=== PATIENT | male | born 1980 | race Caucasian/White ===

== ENCOUNTER → 2016-04-05 | Outpatient (CLI) | payer BC, OTHER ==
[~2016-04-05] MED LIST: ACET65TA OR; ASPI81TA63 OR; PERC5TAB8 OR
[2016-04-05 10:35] LABS: MEAN CORPUSCULAR HEMOGLOBIN 30.1 pg (27.0-33.0); MEAN CORPUSCULAR HGB CONC 33.6 g/dl (32.0-36.5); MEAN CORPUSCULAR VOLUME 89.6 fl (80.0-96.0); RED CELL DISTRIBUTION WIDTH 12.2 % (11.5-14.5)
[2016-04-05 11:20] LABS: ALBUMIN 3.8 GM/DL (3.2-5.2); ALBUMIN/GLOBULIN RATIO 0.97 (1.00-1.93); ALKALINE PHOSPHATASE 49 U/L (45-117); ALT/SGPT 49 U/L (12-78); ANION GAP 8 MEQ/L (8-16); AST/SGOT 23 U/L (15-37); BILIRUBIN,TOTAL 0.5 MG/DL (0.2-1.0); BLOOD UREA NITROGEN 15 MG/DL (7-18); CALCIUM LEVEL 9.2 MG/DL (8.5-10.1); CARBON DIOXIDE LEVEL 30 MEQ/L (21-32); CHLORIDE LEVEL 102 MEQ/L (98-107); CHOLESTEROL LEVEL 206 MG/DL (<200); CREATININE FOR GFR 1.08 MG/DL (0.70-1.30); GLOMERULAR FILTRATION RATE > 60.0 (>60); GLUCOSE, FASTING 82 MG/DL (70-105); POTASSIUM SERUM 4.8 MEQ/L (3.5-5.1); SODIUM LEVEL 140 MEQ/L (136-145); TOTAL PROTEIN 7.7 GM/DL (6.4-8.2); TRIGLYCERIDES LEVEL 136 MG/DL (<150)
== END ==
LOC: M LAB 10:11
PROVIDERS: ATTEND Family Medicine
DX: D64.9 Anemia, unspecified (principal); R53.83 Other fatigue

== ENCOUNTER → 2018-06-27 | Outpatient (CLI) | payer BC, OTHER ==
[2018-06-27 11:31] LABS: HEMATOCRIT 49.4 % (42.0-52.0); HEMOGLOBIN 16.1 g/dl (13.5-17.5); MEAN CORPUSCULAR HGB CONC 32.6 g/dl (32.0-36.5); PLATELET COUNT, AUTOMATED 283 10^3/uL (150-450); RED BLOOD COUNT 5.55 10^6/uL (4.30-6.10); WHITE BLOOD COUNT 5.5 10^3/uL (4.0-10.0)
[2018-06-27 12:21] LABS: ALBUMIN 3.9 GM/DL (3.2-5.2); ALT/SGPT 44 U/L (12-78); BILIRUBIN,TOTAL 0.6 MG/DL (0.2-1.0); BLOOD UREA NITROGEN 16 MG/DL (7-18); CARBON DIOXIDE LEVEL 30 MEQ/L (21-32); CHLORIDE LEVEL 104 MEQ/L (98-107); CHOLESTEROL LEVEL 219 MG/DL (<200); CREATININE FOR GFR 1.19 MG/DL (0.70-1.30); GLOMERULAR FILTRATION RATE > 60.0 (>60); GLUCOSE, FASTING 84 MG/DL (70-100); HDL CHOLESTEROL 30 MG/DL (>40); LDL CHOLESTEROL 173 MG/DL (<100); NON-HDL-C 189 MG/DL; POTASSIUM SERUM 5.2 MEQ/L (3.5-5.1); SODIUM LEVEL 139 MEQ/L (136-145); TESTOSTERONE 129 NG/DL (241-827); THYROID STIMULATING HORMONE 0.895 uIU/ML (0.358-3.740); TOTAL 25(OH) VITAMIN D 36.5 NG/ML (30.0-100.0); TOTAL PROTEIN 7.5 GM/DL (6.4-8.2); TRIGLYCERIDES LEVEL 79 MG/DL (<150)
== END ==
LOC: M LAB 10:10
PROVIDERS: ATTEND Family Medicine
DX: R53.83 Other fatigue (principal); E03.9 Hypothyroidism, unspecified

== ENCOUNTER → 2018-10-24 | Outpatient (CLI) | payer BC, OTHER ==
--- NOTE | 2018-10-24 21:03 | REP ---
MRI LEFT HIP: TECHNIQUE: Coronal T1, STIR through the pelvis, T2 fat sat, left hip all three planes, axial oblique proton density fat sat left hip. Visualized osseous structures demonstrate normal bone marrow signal. There is no bone marrow edema or occult fracture. There is no evidence of avascular necrosis. I do not see a discrete labral tear. There is no paralabral cyst. There is a normal amount of joint fluid. There is an area of fluid signal within the proximal rectus femoris muscle with a fluid gap of approximately 4 cm. This indicates rupture of the proximal rectus femoris muscle. AP diameter of the fluid signal is 1.7 cm and transverse 3.7 cm. Other adjacent muscles and tendons demonstrate no abnormal signal. Visualized intrapelvic structures are unremarkable. IMPRESSION: Rupture of proximal rectus femoris muscle with a fluid gap and distraction of the proximal and distal portions of the torn muscle approximately 4 cm. Electronically Signed by Bruce Brewer MD 10/25/2018 02:36 P
== END ==
LOC: M RAD 16:53
PROVIDERS: ATTEND Orthopaedic Surgery Sports Medicine
DX: S76.112A Strain of left quadriceps muscle, fascia and tendon, initial encounter (principal); X58.XXXA Exposure to other specified factors, initial encounter; Y92.89 Other specified places as the place of occurrence of the external cause

== ENCOUNTER → 2020-01-15 | Outpatient (CLI) | payer BC, OTHER ==
[2020-01-15 11:43] LABS: HEMATOCRIT 49.8 % (42.0-52.0); HEMOGLOBIN 16.5 g/dl (13.5-17.5); MEAN CORPUSCULAR HEMOGLOBIN 29.2 pg (27.0-33.0); MEAN CORPUSCULAR HGB CONC 33.1 g/dl (32.0-36.5); PLATELET COUNT, AUTOMATED 234 10^3/uL (150-450); RED BLOOD COUNT 5.66 10^6/uL (4.30-6.10); WHITE BLOOD COUNT 5.2 10^3/uL (4.0-10.0)
--- NOTE | 2020-01-15 11:56 | REP ---
INDICATION: FATIGUE,HYPOTHYROID, LAB 1ST, EKG 2ND, XRAY 3RD. COMPARISON: None. TECHNIQUE: Two views.. FINDINGS: The lungs are well inflated and free of infiltrate. The pleural angles are sharp. The heart size is normal. Pulmonary vasculature is not increased. No significant bony abnormality is seen. There are 2 old healed rib fractures on the left anteriorly. IMPRESSION: Two old healed left-sided rib fractures. Otherwise negative chest x-ray.. <Electronically signed by Fredis Evans > 01/15/20 [id number]
[2020-01-15 12:15] LABS: ALT/SGPT 25 U/L (12-78); BILIRUBIN,TOTAL 0.5 MG/DL (0.2-1.0); BLOOD UREA NITROGEN 18 MG/DL (7-18); CALCIUM LEVEL 9.2 MG/DL (8.5-10.1); CARBON DIOXIDE LEVEL 30 MEQ/L (21-32); CHLORIDE LEVEL 104 MEQ/L (98-107); CHOLESTEROL LEVEL 217 MG/DL (<200); GLOMERULAR FILTRATION RATE > 60.0 (>60); GLUCOSE, FASTING 83 MG/DL (70-100); HDL CHOLESTEROL 55 MG/DL (>40); POTASSIUM SERUM 4.6 MEQ/L (3.5-5.1); SODIUM LEVEL 138 MEQ/L (136-145); TESTOSTERONE 550 NG/DL (241-827); TRIGLYCERIDES LEVEL 86 MG/DL (<150)
[2020-01-15 12:16] LABS: ALBUMIN 4.1 GM/DL (3.2-5.2); CHOLESTEROL RISK RATIO 3.945 (<5); LDL CHOLESTEROL 145 MG/DL (<100); NON-HDL-C 162 MG/DL; PROSTATIC SPECIFIC AG MONITOR 0.61 NG/ML (< 4.00); TOTAL PROTEIN 7.5 GM/DL (6.4-8.2)
--- NOTE | 2020-01-15 18:09 | ECGEPIP ---
[facility] Test Date: 2020-01-15 Pat Name: URIEL SMITH Department: Room: - Gender: Male Clinical Care Leader: LEONOR : 1980 Requested By: Juan Anglin Order Number: [id number] Reading MD: Jack Smith Measurements Intervals [place] Rate: 57 P: 61 RI: 156 QRS: 59 QRSD: 92 T: 51 QT: 385 QTc: 375 Interpretive Statements Sinus bradycardia Early repolarization Athletic heart suggested Comparison tracing not available Electronically Signed on 01-15-2020 18:09:13 EST by Jack Smith
== END ==
LOC: M LAB 10:09
PROVIDERS: ATTEND Family Medicine
DX: R53.83 Other fatigue (principal); E03.9 Hypothyroidism, unspecified

== ENCOUNTER → 2020-10-07 | Outpatient (CLI) | payer BC, OTHER ==
[~2020-10-07] MED LIST changes: +CETI-24 PO; +DOXY100C3 PO; +FISH1000 PO; +SIMV20TA22 PO; +THERTAB52 PO; +ZOLP10TA2 PO
== END ==
LOC: M WUC 09:51
PROVIDERS: ATTEND Physician Assistant
DX: S83.412A Sprain of medial collateral ligament of left knee, initial encounter (principal); X58.XXXA Exposure to other specified factors, initial encounter; Y92.9 Unspecified place or not applicable; Y93.9 Activity, unspecified; Y99.9 Unspecified external cause status

== ENCOUNTER → 2020-10-18 | Outpatient (CLI) | payer BC, OTHER ==
[~2020-10-18] MED LIST changes: -CETI-24 PO; -DOXY100C3 PO; -FISH1000 PO; -SIMV20TA22 PO; -THERTAB52 PO; -ZOLP10TA2 PO
--- NOTE | 2020-10-19 08:49 | REP ---
INDICATION: LT KNEE PAIN. COMPARISON: None. TECHNIQUE: Routine scans without gadolinium enhancement. FINDINGS: There is extensive injury to the medial head of the gastrocnemius with high-signal in the musculotendinous junction and and fluid surrounding the tendon and musculotendinous junction consistent with focal hemorrhage. The tendon is not torn and there is no retraction. The remaining muscles of the knee are intact. There is a joint effusion. There is a radial tear involving the posterior horn of the medial meniscus. Lateral meniscus is intact. The cruciate and collateral ligaments are intact. The patella is well seated in the retinacula are intact. IMPRESSION: Extensive injury in the medial head of the gastrocnemius muscle with surrounding blood. No disruption of the muscle fibers and no retraction. Radial tear posterior horn medial meniscus. <Electronically signed by Shiv Barber > 10/19/20 3584
== END ==
LOC: M RAD 14:59
PROVIDERS: ATTEND Orthopaedic Surgery Sports Medicine
DX: S83.242A Other tear of medial meniscus, current injury, left knee, initial encounter (principal); X58.XXXA Exposure to other specified factors, initial encounter; Y92.89 Other specified places as the place of occurrence of the external cause; Y93.89 Activity, other specified; Y99.8 Other external cause status

== ENCOUNTER → 2020-12-19 | Outpatient (CLI) | payer BC, OTHER ==
[~2020-12-19] MED LIST changes: +CETI-24 PO; +DOXY100C3 PO; +FISH1000 PO; +SIMV20TA22 PO; +THERTAB52 PO; +ZOLP10TA2 PO
== END ==
LOC: M LABSMTC 09:06
PROVIDERS: ATTEND Anesthesiology
DX: Z01.812 Encounter for preprocedural laboratory examination (principal); Z20.822 Contact with and (suspected) exposure to COVID-19

== ENCOUNTER 2020-12-24 06:15 | Day surgery (SDC) | payer BC, OTHER ==
[~2020-12-24] VITALS: Ht 177.8 cm; Wt 93.4 kg
[~2020-12-24 06:15] MED LIST changes: +LR 1,000 ML IV ONE; +ceFAZolin SOD 2 GM in IV 1 EA IV ONE
--- OUTSIDE RECORDS SUMMARY | 2020-12-24 06:19 | CCD | Continuity of Care Document ---
Author Author Aubrey LERNER Organization Unknown Address [address] [place] [address] Phone [phone] Care Team Providers Care Olive Grader Name Role Phone Derrek Isabel MD AUT Unavailable Problems Description No Information Available Social History Type Date Description Comments Sex Unknown Tobacco Use Start: Unknown End: Unknown Former Cigarette Smo ker Quit 2008 ETOH Use Social Drinker Sun Exposure moderate amount of sun exposure Sun Exposure Tanning bed - Has used in past. No longer using. Sun Exposure Has experienced blistering from sunburns Sun Exposure Uses > 30 SPF Allergies and adverse reactions Description No Known Drug Allergies Medications Active Medications SIG Qnty Indications Ordering Provide r Date Fluticasone Propionate 0.05% Cream Apply To Bilateral Eyelids Sparingly Twice A Day as Needed 15units H01.131 ALEXANDRE Moyer 05/28/2020 Clindamycin Phos-Benzoyl Perox 1-5 % Gel Apply Topically To Face, Back And Chest Once Daily 50units L70.0 ALEXANDRE Moyer 03/12/2020 Cetirizine HCL Unknown Testosterone Unknown Ambien Unknown Immunizations Description No Information Available Vital Signs Date Vital Result Comment 12/01/2020 8:44am BP Systolic 120 mmHg BP Diastolic 88 mmHg Weight 200.00 lb Height 70 inches 5'10" BMI (Body Mass Index) 28.7 kg/m2 05/28/2020 8:02am BP Systolic 120 mmHg BP Diastolic 70 mmHg Weight 200.00 lb Body Temperature 97.5 F Results Description No Information Available Procedures Date Code Description Status 12/01/2020 93635 Office/Outpatient Established Mo d MDM 30-39 Min Completed 12/01/2020 30247 Destruction Of Lesion First Comp leted Medical Devices Description No Information Available Encounters Type Date Location Provider Dx Diagnosis Office Visit 12/01/2020 8:30a Main Office ALEXANDRE Moyer L70.0 Acne vulgaris L57.0 Actinic keratosis Assessments Date Code Description Provider 12/01/2020 L70.0 Acne vulgaris ALEXANDRE Ar[address]eta rd 12/01/2020 L57.0 Actinic keratosis ALEXANDRE Diaz Plan of Treatment Future Appointment(s):* 06/01/2021 8:15 am - ALEXANDRE Moyer at Main Office * 03/11/2021 9:00 am - ALEXANDRE Moyer at Main Office 12/01/2020 - ALEXANDRE Moyer* L70.0 Acne vulgaris* Comments:* Stable. DC Sulfacetamide Sodium - Sulfur 9.8-4.8% cleanser.Continue Clindamycin- Benzoyl Peroxide 1-5% gel daily.Recommended starting an OTC Benzoyl Peroxide wash once daily. Can continue Doxycycline 1 tab every 3-4 days. Recommended decreasing to as needed for flaring due to side effects associated with senior care antibiotic use. Discussed to take once daily for 7 days with flares.Aubrey verbalized understanding and will try to decrease the Doxycycline to as needed. Call with problems. * L57.0 Actinic keratosis* Comments:* LN2 to 1 AK today. Discussed that the area treated will get red, bubble up/blister, maybe get a little weepy, form a scab then heal. Sunscreen use and sun protection discussed. Contact office if AK fails to resolve despite treatment. * Follow up:* 6 month - acne fu Functional Status Description No Information Available Mental Status Description No Information Available Referrals Description No Information Available
--- OUTSIDE RECORDS SUMMARY | 2020-12-24 06:19 | CCD | Continuity of Care Document ---
Author Author Aubrey MONCADA MD Organization Unknown Address [address] [place] [address] , [facility] [address] [place] [address] Phone [phone] Problems Description No Information Available Social History Type Date Description Comments Sex Unknown ETOH Use Occasionally consumes alcohol Tobacco Use Start: Unknown End: Unknown Patient is a former smoker Recreational Drug Use Denies Drug Use Allergies, Adverse Reactions, Alerts Description No Known Drug Allergies Medications Active Medications SIG Qnty Indications Ordering Provide r Date Zyrtec Allergy 10mg Tablets 1 by mouth every day Unknown Simvastatin 10mg Tablets Unknown Zaleplon 10mg Capsules Half a cap as needed Unknown Immunizations Description No Information Available Vital Signs Date Vital Result Comment 11/25/2020 2:42pm Body Temperature 96.7 F 10/14/2020 1:52pm Body Temperature 98.5 F Results Description No Information Available Procedures Date Code Description Status 11/25/2020 13858 Office/Outpatient Established Mo d MDM 30-39 Min Completed 10/21/2020 75532 Phone Evaluation/Management By Mayco patel 5-10 Mins Completed 10/14/2020 63620 Office/Outpatient Established Mo d MDM 30-39 Min Completed Medical Devices Description No Information Available Encounters Type Date Location Provider Dx Diagnosis Office Visit 11/25/2020 2:45p Rudy Moncada MD S83.242A Oth tear of medial meniscus, current inj ury, left knee, init Office Visit 10/21/2020 3:45p Rudy Moncada MD M25.562 Pain in left knee S86.112A Strain musc/tend post grp at low leg level, left leg, init Office Visit 10/14/2020 2:00p Rudy Moncada MD M25.562 Pain in left knee Assessments Date Code Description Provider 11/25/2020 S83.242A Other tear of medial meniscus, current injury, left knee, initial encounter Alex Moncada MD 10/21/2020 M25.562 Pain in left knee Alex Moncada MD 10/21/2020 S86.112A Strain of other musc le(s) and tendon(s) of posterior muscle group at lower leg level, left leg, initial encounter Alex Moncada MD 10/14/2020 M25.562 Pain in left knee Alex Moncada MD Plan of Treatment No Information Available Functional Status Description No Information Available Mental Status Description No Information Available Referrals Description No Information Available
--- OUTSIDE RECORDS SUMMARY | 2020-12-24 06:20 | CCD | Continuity of Care Document ---
Author Author Aubrey LEGGETT [place] Organization Unknown Address [address] [place] [address] Phone [phone] Care Team Providers Care Contract Processor Name Role Phone Derrek Isabel MD [facility] [phone] Problems Description No Information Available Social History Type Date Description Comments Sex Unknown ETOH Use Occasionally consumes alcohol Tobacco Use Start: Unknown Patient has never smoked Tobacco Use Start: Unknown The Patient Has Never Vaped Smoking Status Reviewed: 10/07/20 The Patient Has Never Vaped Allergies, Adverse Reactions, Alerts Description No Known Drug Allergies Medications Active Medications SIG Qnty Indications Ordering Provide r Date Knee Brace/Hinged L/XL Misc hinged knee brace fo rmedial collateral ligament-Left 1units S83.412A John Adamson JR., M.D. 10/07/2020 Azithromycin 250mg Tablets take two tablets day one, one tablet day 2-5 6tabs J20.9 John tillman JR., M.D. 06/24/2015 Cetirizine HCL Unknown Simvastatin Unknown Immunizations CPT Code Status Date Vaccine Lot # [id number] Given 11/06/2014 Tetanus (Td) Vaccine 7 Yrs> [id number] Vital Signs Date Vital Result Comment 10/07/2020 9:34am BP Systolic 145 mmHg BP Diastolic 93 mmHg Heart Rate 77 /min Respiratory Rate 16 /min O2 % BldC Oximetry 98 % Body Temperature 98.0 F Weight 200.00 lb Height 70 inches 5'10" BMI (Body Mass Index) 28.7 kg/m2 Pain Level 7 06/24/2015 3:54pm BP Systolic 135 mmHg BP Diastolic 88 mmHg Heart Rate 62 /min Respiratory Rate 18 /min O2 % BldC Oximetry 97 % Body Temperature 98.0 F Weight 190.00 lb Height 70 inches 5'10" BMI (Body Mass Index) 27.3 kg/m2 Pain Level 0 Results Description No Information Available Procedures Date Code Description Status 10/07/2020 71236 Office/Outpatient New Low MDM 30 -44 Minutes Completed Medical Devices Description No Information Available Encounters Type Date Location Provider Dx Diagnosis Office Visit 10/07/2020 8:50a Main Office FRANCIS Montejo S83 .412A Sprain of medial collateral ligament of left knee, init Assessments Date Code Description Provider 10/07/2020 S83.412A Sprain of medial col lateral ligament of left knee, initial encounter FRANCIS Montejo Plan of Treatment 10/07/2020 - FRANCIS Montejo* S83.412A Sprain of medial collateral ligament of left knee, initial encounter* New Medication:* Knee Brace/Hinged L/XL - hinged knee brace fo rmedial collateral ligament-Left Functional Status Description No Information Available Mental Status Description No Information Available Referrals Description No Information Available
--- OUTSIDE RECORDS SUMMARY | 2020-12-24 06:20 | CCD | Continuity of Care Document ---
Author Author Aubrey MONCADA MD Organization Unknown Address [address] [place] [address] , [facility] [address] [place] [address] Phone [phone] Problems Description No Information Available Social History [...] Available Vital Signs Date Vital Result Comment 10/14/2020 1:52pm Body Temperature 98.5 F 10/18/2018 10:06am Body Temperature 97.9 F Height 70 inches 5'10" Weight 195.00 lb BMI (Body Mass Index) 28.0 kg/m2 [place] Body Weight 166 lb Weight 88.452 kg BSA (Body Surface Area) 2.06 m2 Results Description No Information Available Procedures Date Code Description Status 10/21/2020 24170 Phone Evaluation/Management By Mayco patel 5-10 Mins Completed 10/14/2020 96552 Office/Outpatient Established Mo d MDM 30-39 Min Completed Medical Devices Description No Information Available Encounters Type Date Location Provider Dx Diagnosis Office Visit 10/21/2020 3:45p Rudy Orthopedictony Moncada MD M25.562 Pain in left knee S86.112A Strain musc/tend post grp at low leg level, left leg, init Office Visit 10/14/2020 2:00p Rudy Moncada MD M25.562 Pain in left knee Assessments Date Code Description Provider 10/21/2020 M25.562 Pain in left knee Alex [...]
--- OUTSIDE RECORDS SUMMARY | 2020-12-24 06:20 | CCD | Continuity of Care Document ---
Author Author Aubrey GU MD Organization Unknown Address [address] [place] [address] , [facility] 2 [place] [address] Phone [phone] Problems Description No Information Available Social History [...] lb BMI (Body Mass Index) 28.0 kg/m2 [place] Body Weight 166 lb Weight 88.452 kg BSA (Body Surface Area) 2.06 m2 Results Description No Information Available Procedures Date Code Description Status 10/21/2020 63365 Office/Outpatient Established Mo d MDM 30-39 Min Completed 10/14/2020 04617 Office/Outpatient Established Mo d MDM 30-39 Min Completed Medical Devices Description No Information Available Encounters Type Date Location Provider Dx Diagnosis Office Visit 10/21/2020 3:45p Rudy Gu MD M25.562 Pain in left knee S86.112D Strain musc/tend post grp at low leg level, left leg, subs Office Visit 10/14/2020 2:00p Rudy Gu MD M25.562 Pain in left knee Assessments Date Code Description Provider 10/21/2020 M25.562 Pain in left knee Alex Gu MD 10/21/2020 S86.112D Strain of other musc le(s) and tendon(s) of posterior muscle group at lower leg level, left leg, subsequent encounter Alex Gu MD 10/14/2020 M25.562 Pain in left knee Alex Gu MD Plan of Treatment No Information Available Functional Status Description No Information Available Mental Status Description No Information Available Referrals Description No Information Available
--- OUTSIDE RECORDS SUMMARY | 2020-12-24 06:20 | CCD | Continuity of Care Document ---
Author Author Aubrey GU MD Organization Unknown Address [address] [place] [address] , [facility] 2 [place] [address] Phone [phone] Problems Description No Information Available Social History [...] lb BMI (Body Mass Index) 28.0 kg/m2 [place] Body Weight 166 lb Weight 88.452 kg BSA (Body Surface Area) 2.06 m2 Results Description No Information Available Procedures Date Code Description Status 10/14/2020 42492 Office/Outpatient Established Mo d MDM 30-39 Min Completed Medical Devices Description No Information Available Encounters Type Date Location Provider Dx Diagnosis Office Visit 10/14/2020 2:00p [facility] Alex Gu MD M25.562 Pain in left knee Assessments Date Code Description Provider 10/14/2020 M25.562 Pain in left knee Alex Gu MD Plan of Treatment Future Appointment(s):* 10/21/2020 3:45 pm - Alex Gu MD at [facility] 10/14/2020 - Alex Gu MD* M25.562 Pain in left knee Functional Status Description No Information Available Mental Status Description No Information Available Referrals Description No Information Available
--- OUTSIDE RECORDS SUMMARY | 2020-12-24 06:20 | CCD | Continuity of Care Document ---
Author Author Aubrey GU MD Organization Unknown Address [address] [place] [address] , [facility] 2 [place] [address] Phone [phone] Problems Description No Information Available Social History [...] lb BMI (Body Mass Index) 28.0 kg/m2 [place] Body Weight 166 lb Weight 88.452 kg BSA (Body Surface Area) 2.06 m2 Results Description No Information Available Procedures Date Code Description Status 10/14/2020 27118 Office/Outpatient Established Mo d MDM 30-39 Min Completed Medical Devices Description No Information Available Encounters Type Date Location Provider Dx Diagnosis Office Visit 10/14/2020 2:00p [facility] Orthopedics Alex Gu MD M25.562 Pain in left knee Assessments Date Code Description Provider 10/14/2020 M25.562 Pain in left knee Alex Gu MD Plan of Treatment Future Appointment(s):* 10/21/2020 3:45 pm - Alex Gu MD at [facility] 10/14/2020 - Alex Gu MD* M25.562 Pain in left knee Functional Status Description No Information Available Mental Status Description No Information Available Referrals Description No Information Available
--- OUTSIDE RECORDS SUMMARY | 2020-12-24 06:20 | CCD | Continuity of Care Document ---
Author Author Aubrey GU MD Organization Unknown Address [address] [place] [address] , [facility] 2 [place] [address] Phone [phone] Problems Description No Information Available Social History [...] lb BMI (Body Mass Index) 28.0 kg/m2 [place] Body Weight 166 lb Weight 88.452 kg BSA (Body Surface Area) 2.06 m2 Results Description No Information Available Procedures Date Code Description Status 10/14/2020 08910 Office/Outpatient Established Mo d MDM 30-39 Min Completed Medical Devices Description No Information Available Encounters Type Date Location Provider Dx Diagnosis Office Visit 10/14/2020 2:00p [facility] Orthopedics Alex Gu MD M25.562 Pain in left knee Assessments Date Code Description Provider 10/14/2020 M25.562 Pain in left knee Alex Gu MD Plan of Treatment Future Appointment(s):* 10/21/2020 3:45 pm - Alex Gu MD at [facility] 10/14/2020 - Alex Gu MD* M25.562 Pain in left knee Functional Status Description No Information Available Mental Status Description No Information Available Referrals Description No Information Available
--- OUTSIDE RECORDS SUMMARY | 2020-12-24 06:20 | CCD ---
Author Author [facility] Organization [facility] Address Unknown Phone Unavailable Care Team Providers Care Slot Floor Supervisor Name Role Phone YOSEPHIERE, Max BAEZ PA Unavailable Unavailable LETTIERE, A NESTOR PA Unavailable Unavailable LETTIERE, A NESTOR PA Unavailable Unavailable LETTIERE, A NESTOR PA Unavailable Unavailable LETTIERE, A NESTOR PA Unavailable Unavailable LETTIERE, A NESTOR PA Unavailable Unavailable LETTIERE, A NESTOR PA Unavailable Unavailable LETTIERE, A NESTOR PA Unavailable Unavailable LETTIERE, A NESTOR PA Unavailable Unavailable LETTIERE, A NESTOR PA Unavailable Unavailable LETTIERE, A NESTOR PA Unavailable Unavailable LETTIERE, A NESTOR PA Unavailable Unavailable LETTIERE, A NESTOR PA Unavailable Unavailable LETTIERE, A NESTOR PA Unavailable Unavailable LETTIERE, A NESTOR PA Unavailable Unavailable LETTIERE, A NESTOR PA Unavailable Unavailable LETTIERE, A NESTOR PA Unavailable Unavailable LETTIERE, A NESTOR PA Unavailable Unavailable LETTIERE, A NESTOR PA Unavailable Unavailable LETTIERE, A NESTOR PA Unavailable Unavailable LETTIERE, A NESTOR PA Unavailable Unavailable LETTIERE, A NESTOR PA Unavailable Unavailable LETTIERE, A NESTOR PA Unavailable Unavailable LETTIERE, A NESTOR PA Unavailable Unavailable LETTIERE, A NESTOR PA Unavailable Unavailable LETTIERE, A NESTOR PA Unavailable Unavailable LETTIERE, A NESTOR PA Unavailable Unavailable LETTIERE, A NESTOR PA Unavailable Unavailable LETTIERE, A NESTOR PA Unavailable Unavailable LETTIERE, A NESTOR PA Unavailable Unavailable LETTIERE, A NESTOR PA Unavailable Unavailable Mollison, Roro Johnson MD Unavailable Unavailable Mollison, Roro Johnson MD Unavailable Unavailable Mollison, Roro Johnson MD Unavailable Unavailable Mollison, Roro Johnson MD Unavailable Unavailable Mollison, Roro Johnson MD Unavailable Unavailable Mollison, Roro Johnson MD Unavailable Unavailable Mollison, Roro Johnson MD Unavailable Unavailable Mollison, Roro Johnson MD Unavailable Unavailable Mollison, Roro Johnson MD Unavailable Unavailable Mollison, Roro Johnson MD Unavailable Unavailable Mollison, Roro Johnson MD Unavailable Unavailable Mollison, Roro Johnson MD Unavailable Unavailable Mollison, Roro Johnson MD Unavailable Unavailable Mollison, Roro Johnson MD Unavailable Unavailable Mollison, Roro Johnson MD Unavailable Unavailable Mollison, Roro Johnson MD Unavailable Unavailable Mollison, Roro Johnson MD Unavailable Unavailable Mollison, Roro Johnson MD Unavailable Unavailable Mollison, Roro Johnson MD Unavailable Unavailable Mollison, Roro Johnson MD Unavailable Unavailable Mollison, Roro Johnson MD Unavailable Unavailable Mollison, Roro Johnson MD Unavailable Unavailable Mollison, Roro Johnson MD Unavailable Unavailable Mollison, Roro Johnson MD Unavailable Unavailable Mollison, Roro Johnson MD Unavailable Unavailable Mollison, Roro Johnson MD Unavailable Unavailable Mollison, Roro Johnson MD Unavailable Unavailable Mollison, Roro Johnson MD Unavailable Unavailable Mollison, Roro Johnson MD Unavailable Unavailable Mollison, Roro Johnson MD Unavailable Unavailable Hegard, Winsome TRUCK DRIVING Unavailable Unavailable Hegard, Winsome TRUCK DRIVING Unavailable Unavailable Hegard, Winsome TRUCK DRIVING Unavailable Unavailable Hegard, Winsome TRUCK DRIVING Unavailable Unavailable Hegard, Winsome TRUCK DRIVING Unavailable Unavailable Hegard, Winsome TRUCK DRIVING Unavailable Unavailable Hegard, Winsome TRUCK DRIVING Unavailable Unavailable Hegard, Winsome TRUCK DRIVING Unavailable Unavailable Hegard, Winsome TRUCK DRIVING Unavailable Unavailable Hegard, Winsome TRUCK DRIVING Unavailable Unavailable Hegard, Winsome TRUCK DRIVING Unavailable Unavailable Hegard, Winsome TRUCK DRIVING Unavailable Unavailable Hegard, Winsome TRUCK DRIVING Unavailable Unavailable Hegard, Winsome TRUCK DRIVING Unavailable Unavailable Hegard, Winsome TRUCK DRIVING Unavailable Unavailable Hegard, Winsome TRUCK DRIVING Unavailable Unavailable Hegard, Winsome TRUCK DRIVING Unavailable Unavailable Re-disclosure Warning The records that you are about to access may contain information from federally-assisted alcohol or drug abuse programs. If such information is present, then the following federally mandated warning applies: This information has been disclosed to you from records protected by federal confidentiality rules (42 CFR part 2). The federal rules prohibit you from making any further disclosure of this information unless further disclosure is expressly permitted by the written consent of the person to whom it pertains or as otherwise permitted by 42 CFR part 2. A general authorization for the release of medical or other information is NOT sufficient for this purpose. The Federal rules restrict any use of the information to criminally investigate or prosecute any alcohol or drug abuse patient.The records that you are about to access may contain highly sensitive health information, the redisclosure of which is protected by Article 27-F of the [facility] Public Health law. If you continue you may have access to information: Regarding HIV / AIDS; Provided by facilities licensed or operated by the [facility] Office of Mental Health; or Provided by the [facility] Office for People With Developmental Disabilities. If such information is present, then the following [facility] mandated warning applies: This information has been disclosed to you from confidential records which are protected by state law. State law prohibits you from making any further disclosure of this information without the specific written consent of the person to whom it pertains, or as otherwise permitted by law. Any unauthorized further disclosure in violation of state law may result in a fine or halfway sentence or both. A general authorization for the release of medical or other information is NOT sufficient authorization for further disc losure. Family History Family Member Name Family Member Gender Family Member Status Date o f Status Description Data Source(s) Unknown Unknown Problem [facility] ([facility] Encounters Encounter Providers Location Date Indications Data Source(s ) Outpatient Attender: Winsome Pelaez [facility] Main Office 0 12/01/2020 08:30:00 AM EDT [facility] ([facility]) Outpatient Attender: Alex Garcia/Willis/Santosh/Re indl 11/25/2020 02:45:00 PM EDT [facility] ([facility] Office Visit Attender: Alex Garcia/Willis/Santosh/Re indl 10/21/2020 03:45:00 PM EDT [facility] ([facility]) Outpatient Attender: Alex Garcia/Willis/Santosh/Re indl 10/14/2020 02:00:00 PM EDT [facility] ([facility] Outpatient Attender: NESTOR worthington 10/07/2020 08:50:00 AM EDT [facility] ([facility]) Immunizations Vaccine Date Status Description Data Source(s) COVID-19 VACCINE Moderna 05/15/2020 12:00:00 AM EST completed [facility] Vaccine Series Complete: YESThis Data wa s Submitted to [facility] Via [employer]. COVID-19 VACCINE Moderna 04/17/2020 12:00:00 AM EST completed [facility] Vaccine Series Complete: NOThis Data was Submitted to [facility] Via [employer]. Medications Medication Brand Name Start Date Product Form Dose Route Admi nistrative Instructions Pharmacy Instructions Status Indications Reaction Description Data Source(s) Knee Brace/Hinged L/XL 10/07/2020 12:00:00 AM EDT active [facility] ([facility]) Fluticasone propionate 0.5 MG/ML Topical Cream Fluticasone P ropionate 05/28/2020 12:00:00 AM EDT active M EDENT ([facility]) Benzoyl Peroxide 0.05 MG/MG / Clindamycin 0.01 MG/MG T opical Gel Clindamycin Phos-Benzoyl Perox 03/12/2020 12:00:00 AM EST acti ve [facility] ([facility]) Insurance Providers Payer name Policy type / Coverage type Policy ID Covered libertarian ID Covered libertarian's relationship to german Policy German Plan Information [facility] DIV [id number] SP [id number] [facility] [id number] SP [id number] [facility] Commercial [id number] Self [id number] Problems, Conditions, and Diagnoses No Information Surgeries/Procedures Procedure Description Date Indications Data Source(s) DESTRUCTION PREMALIGNANT LESION 1ST 12/01/2020 12:00:0 0 AM EDT [facility] ([facility]) OFFICE OUTPATIENT VISIT 25 MINUTES 12/01/2020 12:00:00 AM EDT [facility] ([facility]) OFFICE OUTPATIENT VISIT 25 MINUTES 11/25/2020 12:00:00 AM EDT [facility] ([facility], ) PHYSICIAN TELEPHONE EVALUATION 5-10 MIN 10/21/2020 12: 00:00 AM EDT [facility]) OFFICE OUTPATIENT VISIT 25 MINUTES 10/21/2020 12:00:00 AM EDT [facility] ([facility]) OFFICE OUTPATIENT VISIT 25 MINUTES 10/14/2020 12:00:00 AM EDT [facility] ([facility]) OFFICE OUTPATIENT NEW 30 MINUTES 10/07/2020 12:00:00 A M EDT [facility] ([facility]) Results No Information Social History No Information Vital Signs ID Date Data Source UNK Name Value Range Interpretation Code Description Data Source(s) Systolic blood pressure 120 mm[Hg] 120 mm[Hg] [facility] Diastolic blood pressure 88 mm[Hg] 88 mm[Hg] [facility] ([facility] Body weight 200.00 [lb_av] 200.00 [lb_av] [facility] ([facility]) Body height 70 [in_i] 70 [in_i] [facility] ([facility]) 5'10" Body mass index (BMI) [Ratio] 28.7 kg/m2 28.7 k g/m2 [facility] ([facility]) Body temperature 96.7 [degF] 96.7 [degF] [facility] ([facility]) Body temperature 98.5 [degF] 98.5 [degF] [facility] ([facility]) Diastolic blood pressure 93 mm[Hg] 93 mm[Hg] [facility] ([facility]) Heart rate 77 /min 77 /min [facility] ([facility] [place]) Respiratory rate 16 /min 16 /min [facility] ( [facility] [place]) Oxygen saturation in Arterial blood by Pulse oximetry 98 % 98 % [facility] ([facility]) Body temperature 98.0 [degF] 98.0 [degF] [facility] ([facility]) Body weight 200.00 [lb_av] 200.00 [lb_av] [facility] T ([facility]) Body height 70 [in_i] 70 [in_i] [facility] ([facility]) 5'10" Body mass index (BMI) [Ratio] 28.7 kg/m2 28.7 k g/m2 [facility] ([facility]) Systolic blood pressure 145 mm[Hg] 145 mm[Hg] M [facility] ([facility]) Systolic blood pressure 120 mm[Hg] 120 mm[Hg] M [facility]) Diastolic blood pressure 70 mm[Hg] 70 mm[Hg] [facility] ([facility]) Body weight 200.00 [lb_av] 200.00 [lb_av] [facility] ([facility]) Body temperature 97.5 [degF] 97.5 [degF] [facility] ([facility])
--- OUTSIDE RECORDS SUMMARY | 2020-12-24 06:20 | CCD | Continuity of Care Document ---
Author Author Aubrey MONCADA MD Organization Unknown Address [address] [place] [address] , [facility] [address] [place] [address] Phone [phone] Problems Description No Information Available Social History [...] Available Procedures Date Code Description Status 11/25/2020 10728 Office/Outpatient Established Mo d MDM 30-39 Min Completed 10/21/2020 22402 Phone Evaluation/Management By Mayco patel 5-10 Mins Completed 10/14/2020 53707 Office/Outpatient Established Mo d MDM 30-39 Min Completed Medical Devices Description No Information Available Encounters Type Date Location Provider Dx Diagnosis Office Visit 11/25/2020 2:45p Rudy Moncada MD S83.242D Oth tear of medial meniscus, current inj ury, left knee, subs Office Visit 10/21/2020 3:45p Rudy Moncada MD M25.562 Pain in left knee S86.112A Strain musc/tend post grp at low leg level, left leg, init Office Visit 10/14/2020 2:00p Rudy Moncada MD M25.562 Pain in left knee Assessments Date Code Description Provider 11/25/2020 S83.242D Other tear of medial meniscus, current injury, left knee, subsequent encounter Alex Moncada MD 10/21/2020 M25.562 Pain [...]
--- OUTSIDE RECORDS SUMMARY | 2020-12-24 06:20 | CCD | Continuity of Care Document ---
Author Author Aubrey GU MD Organization Unknown Address [address] [place] [address] , [facility] [address] [place] [address] Phone [phone] Problems Description No Information Available Social History [...] lb BMI (Body Mass Index) 28.0 kg/m2 [place] Body Weight 166 lb Weight 88.452 kg BSA (Body Surface Area) 2.06 m2 Results Description No Information Available Procedures Date Code Description Status 10/14/2020 99114 Office/Outpatient Established Mo d MDM 30-39 Min Completed Medical Devices Description No Information Available Encounters Type Date Location Provider Dx Diagnosis Office Visit 10/14/2020 2:00p [facility] Alex Gu MD M25.562 Pain in left knee Assessments Date Code Description Provider 10/14/2020 M25.562 Pain in left knee Alex Gu MD Plan of Treatment Future Appointment(s):* 10/21/2020 3:45 pm - Alex Gu MD at [facility] 10/14/2020 - Alex Gu MD* M25.562 Pain in left knee Functional Status Description No Information Available Mental Status Description No Information Available Referrals Description No Information Available
--- OUTSIDE RECORDS SUMMARY | 2020-12-24 06:20 | CCD | Continuity of Care Document ---
Author Author Aubrey GU MD Organization Unknown Address [address] [place] [address] , [facility] 2 [place] [address] Phone [phone] Problems Description No Information Available Social History [...] lb BMI (Body Mass Index) 28.0 kg/m2 [place] Body Weight 166 lb Weight 88.452 kg BSA (Body Surface Area) 2.06 m2 Results Description No Information Available Procedures Date Code Description Status 10/21/2020 63251 Office/Outpatient Established Mo d MDM 30-39 Min Completed 10/14/2020 64202 Office/Outpatient Established Mo d MDM 30-39 Min [...]
--- OUTSIDE RECORDS SUMMARY | 2020-12-24 06:20 | CCD | Continuity of Care Document ---
Author Author Aubrey LEGGETT [place] Organization Unknown Address [address] [place] [id number] Phone [phone] Care Team Providers Care Fabric Worker Fitter Name Role Phone Derrek Isabel MD [facility] [phone] Problems Description No Information Available Social History [...] CPT Code Status Date Vaccine Lot # [id number] Given 11/06/2014 Tetanus (Td) Vaccine 7 Yrs> [id number] Vital Signs Date Vital Result Comment 10/07/2020 [...] Available Procedures Date Code Description Status 10/07/2020 81730 Office/Outpatient New Low MDM 30 -44 Minutes [...]
[2020-12-24] MEDS ORDERED: ROPIvacaine 0.5% 30ML INJECTION (J2795 PER 1MG) As Ordered ONE (07:08)
[2020-12-24] MEDS ORDERED: fentaNYL 100 MCG/2 ML INJECTION (J3010) As Ordered ONE (07:13)
[2020-12-24] MEDS ORDERED: LIDOCAINE 2% 100MG/5ML SDV (FOR ANES.) As Ordered ONE (07:13)
[2020-12-24] MEDS ORDERED: dexameTHASONE 4 MG/ML 1ML VIAL (J1100 PER 1MG) As Ordered ONE (07:13)
[2020-12-24] MEDS ORDERED: ONDANSETRON 4MG/2ML VIAL As Ordered ONE (07:13)
[2020-12-24] MEDS ORDERED: MIDAZOLAM INJ 2MG/2ML VIAL (J2250 PER 1MG) As Ordered ONE (07:13)
[2020-12-24] MEDS ORDERED: propofoL 200 MG/20 ML VIAL As Ordered ONE (07:17)
[2020-12-24] MEDS ORDERED: ACETAMINOPHEN 1000MG 100ML IV BTL (OFIRMEV) (J0131 PER 10MG) As Ordered ONE (07:52)
[2020-12-24] MEDS ORDERED: KETOROLAC 60MG 2ML VIAL As Ordered ONE (08:27)
[2020-12-24] MEDS ORDERED: ONDANSETRON 4MG/2ML VIAL IV PRN ×2 (08:50→09:00)
[2020-12-24] MEDS ORDERED: LR 1,000 ML IV SCH ×2 (08:50→09:00)
[2020-12-24] MEDS ORDERED: oxyCODONE 5MG TAB PO PRN (08:50)
[2020-12-24] MEDS ORDERED: fentaNYL 100 MCG/2 ML INJECTION (J3010) IV PRN (08:50)
[2020-12-24] MEDS ORDERED: HYDROMORPHONE HCL 0.5 MG/ 0.5 ML SYRINGE (J1170 PER 1) IV PRN (08:50)
--- NOTE | 2020-12-24 08:58 | ROOPDOC ---
[facility] Report Of Operation Report of Operation DATE OF PROCEDURE: 12/24/20 PREPROCEDURE DIAGNOSES: Left knee medial meniscus tear. POSTPROCEDURE DIAGNOSES: Same. PROCEDURE PERFORMED: Left knee arthroscopy, partial medial meniscectomy. SURGEON: Dr. Alex Gu MD ENERGY RATER: None ANESTHESIA: General anesthesia Dr. Ardon. ESTIMATED BLOOD LOSS: Approximately 30 mL. COMPLICATIONS: None. REMARKS: None. FINDINGS: Medial meniscus tear. Posterior one half of the meniscus vertically oriented tear not involving the roots. SPECIMENS REMOVED: None PROCEDURE NOTE: This 40-year-old man had mechanical symptoms as well as MRI evidence of posterior horn medial meniscus tear. We discussed the pros and cons risks and benefits of nonsurgical versus surgical management. I saw and assessed the patient in preoperative holding. I marked the left lower extremity. He understood wished to proceed with surgery and had no further questions.. DESCRIPTION OF PROCEDURE: Patient was brought to the operating room theater. He was placed supine on the operating room table. General anesthesia was induced. 2 g of IV Ancef was administered prior to the start of the case. 34 inch tourniquet applied to left thigh appropriately padded. Stress positioner used to the patient's left side. Left lower extremity prepped and draped in the usual sterile fashion with chlorhexidine-based prep solution allowing over 3 minutes drying time prior to draping. Preoperative timeout performed to confirm the site patient and surgery. I began by elevating the limb inflated the tourniquet to 250 mmHg. Made standard anterolateral and anteromedial arthroscopy portals. I performed a thorough diagnostic arthroscopy. Cartilage at the patellofemoral joint was normal. Normal medial lateral gutters no loose body. ACL and PCL appeared normal. There is mild amount of synovitis in the prepatellar area so I gently debrided this. Lateral meniscus as well as cartilage on the lateral side of the knee appeared normal stable and solid to probing. Cartilage on the medial side of the knee appeared normal some very mild grade 1 softening medial femoral condyle normal on the tibial side. There is an obvious vertically oriented tear from the mid aspect medial meniscus towards the posterior horn and stopping just short of the root. This involve the inner 1/3- 1/2 of the meniscus. It was unstable I was able to pull this forward anteriorly. There did appear to be a normal peripheral rim. As this was on the more towards the white white and white-red zone of the meniscus and quite frayed and damaged and given his age as well as desire to return within the next 4 weeks to his [employer] job I made the election to go ahead with partial medial meniscectomy as I deemed this not repairable and not in this man's best interest. I used basket punch as well as shaving instruments to perform partial medial meniscectomy of about 20% total surface area of the meniscus. After this the rim was stable and solid to probing no obvious unstable fragments. Roots appear normal. Arthroscopy pictures taken and saved onto the system throughout the case and case terminated. Tourniquet let down. Wounds cleaned with wet and dry dressing followed application of Steri-Strips Adaptic 4 x 8 gauze abdominal pad dressing and overwrapped with sterile 6 inch Ti bandage. Drapes removed patient woken up with her general anesthetic transferred off the operating room table and taken to postanesthetic care unit in stable condition. All sponge needle instrument counts were correct no complications. Estimated blood loss 30 cc. Plan for the patient range of motion and weightbearing as tolerated crutches as needed for the first 2 weeks. Prescription has been sent in electronically to the pharmacy of [facility]. Postoperative wound instructions were given. It was recommended to keep the wound clean and dry. Dressing changes as needed postoperative day 1, 2 and as needed. It was reinforced with the patient that they should call us or be seen immediately for redness, drainage, or fever. Risk factors for harms from taking opioid medications discussed and assessed including but not limited to personal or family history of substance use disorder, anxiety or depression, , age 65 or older, COPD or other underlying respiratory conditions, and renal or hepatic insufficiency. Discussed with patient concerns and determined any harms they may experience or be currently experiencing such as nausea or constipation, feeling sedated or confused, breathing interruptions during sleep, or taking or craving more opioids than prescribed or difficulty controlling use (addiction). Discussed early warning signs of overdose including confusion, sedation, slurred speech, abnormal gait. ALEX GU MD Dec 24, 2020 08:58
[2020-12-24] MEDS ORDERED: MORPHINE 2 MG/ML 1ML VIAL (J2270) IV PRN (09:00)
[2020-12-24] MEDS ORDERED: PERCOCET 5MG/325MG TAB PO PRN (09:00)
[2020-12-24] MEDS ORDERED: ACETAMINOPHEN TAB 650MG DOSE (2X325MG) PO PRN (09:00)
[2020-12-24 09:20] VITALS: BP 138/85
== END 2020-12-24 10:04 | disposition home or self-care (01) ==
LOC: M SDC 06:15
PROVIDERS: ATTEND Orthopaedic Surgery Sports Medicine
DX: S83.242A Other tear of medial meniscus, current injury, left knee, initial encounter (principal); X58.XXXA Exposure to other specified factors, initial encounter; Y92.89 Other specified places as the place of occurrence of the external cause; Y93.9 Activity, unspecified; Y99.9 Unspecified external cause status; E78.00 Pure hypercholesterolemia, unspecified; E29.1 Testicular hypofunction; Z87.891 Personal history of nicotine dependence; Z79.899 Other long term (current) drug therapy
CPT/HCPCS: 29881; J0131; J0690; J1100; J1885; J2250; J2405; J2795; J3010

== ENCOUNTER 2021-01-29 15:39 | Emergency (ER) | payer BC, OTHER ==
[~2021-01-29] VITALS: Ht 177.8 cm; Wt 95.9 kg
[2021-01-29 15:39] VITALS: BP 195/110
[~2021-01-29 15:39] MED LIST changes: -LR 1,000 ML IV ONE; -ceFAZolin SOD 2 GM in IV 1 EA IV ONE
== END 2021-01-29 18:08 | disposition home or self-care (01) ==
LOC: M ED 15:39
DX: S31.829A Unspecified open wound of left buttock, initial encounter (principal); X58.XXXA Exposure to other specified factors, initial encounter; Y92.9 Unspecified place or not applicable; Y93.9 Activity, unspecified; Y99.9 Unspecified external cause status; Z79.899 Other long term (current) drug therapy

== ENCOUNTER → 2022-04-28 | Outpatient (REF) | payer BC, OTHER | LOC: M SMT 15:34 | PROVIDERS: ATTEND Urology | DX: Z30.2 Encounter for sterilization (principal) ==

== ENCOUNTER → 2022-06-18 | Outpatient (REF) | payer OTHER ==
[2022-06-18 11:38] LABS: SEMEN APPEARANCE OPAQUE (OPAQUE); SEMEN VISCOSITY LIQUID (LIQUID); SEMEN VOLUME 2.2 ml (2.0-5.0); SEMEN pH 8.5 (7.0-8.0); WBC CONCENTRATION <=1 M/ml (<=1 M/ml)
== END ==
LOC: M SMT 09:41
PROVIDERS: ATTEND Urology
DX: Z30.2 Encounter for sterilization (principal)

== ENCOUNTER 2022-09-19 12:33 | Emergency (ER) | payer BC, OTHER ==
[~2022-09-19] VITALS: Ht 177.8 cm; Wt 95.5 kg
[2022-09-19] MEDS ORDERED: KETOROLAC 30 MG/ML 1ML VIAL IM ONE (13:05)
[2022-09-19] MEDS ORDERED: PERCOCET 5MG/325MG TAB PO ONE (14:40)
[2022-09-19] MEDS ORDERED: PERC5TAB12 PO (14:40)
[2022-09-19 14:50] VITALS: BP 143/86; TEMP 97.8; O2SAT 97
== END 2022-09-19 14:52 | disposition home or self-care (01) ==
LOC: M ED 12:33
DX: S52.611A Displaced fracture of right ulna styloid process, initial encounter for closed fracture (principal); S52.351A Displaced comminuted fracture of shaft of radius, right arm, initial encounter for closed fracture; E78.00 Pure hypercholesterolemia, unspecified; Z79.810 Long term (current) use of selective estrogen receptor modulators (SERMs); Z79.899 Other long term (current) drug therapy
CPT/HCPCS: 73090; 73110; 96372; 99283; J1885

== ENCOUNTER 2022-09-22 08:37 | Day surgery (SDC) | payer BC, OTHER ==
[~2022-09-22] VITALS: Ht 177.8 cm; Wt 93.3 kg
[~2022-09-22 08:37] MED LIST changes: +PERC5TAB12 PO
[2022-09-22] MEDS ORDERED: LR 1,000 ML IV SCH ×2 (08:45→11:45)
[2022-09-22] MEDS ORDERED: ceFAZolin SOD 2 GM in IV 1 EA IV ONE (09:00)
[2022-09-22] MEDS ORDERED: fentaNYL 100 MCG/2 ML INJECTION IV PRN ×2 (09:20→11:45)
[2022-09-22] MEDS ORDERED: dexAMETHasone 10MG/1ML VIAL PRES.FREE PN ONE (09:20)
[2022-09-22] MEDS ORDERED: LIDOCAINE 1% SDV 5ML VIAL PN ONE (09:20)
[2022-09-22] MEDS ORDERED: ROPIvacaine 0.5% 30ML VIAL PN ONE (09:20)
[2022-09-22] MEDS: MIDAZOLAM INJ 2MG/2ML VIAL IV PRN (10:21)
[2022-09-22] MEDS ORDERED: KETOROLAC 60MG 2ML VIAL As Ordered ONE (11:18)
[2022-09-22] MEDS ORDERED: fentaNYL 100 MCG/2 ML INJECTION As Ordered ONE (11:18)
[2022-09-22] MEDS ORDERED: ONDANSETRON 4MG 2ML VIAL As Ordered ONE (11:18)
[2022-09-22] MEDS ORDERED: propofoL 200 MG/20 ML VIAL As Ordered ONE (11:18)
[2022-09-22] MEDS ORDERED: LIDOCAINE 2% 100MG/5ML SDV (FOR ANES.) As Ordered ONE (11:18)
[2022-09-22] MEDS ORDERED: ePHEDrine SULFATE 25 MG/5 ML(5MG/ML) SYRINGE As Ordered ONE (11:18)
[2022-09-22] MEDS ORDERED: MIDAZOLAM INJ 2MG/2ML VIAL As Ordered ONE (11:18)
[2022-09-22] MEDS ORDERED: HYDROMORPHONE HCL 0.5 MG/ 0.5 ML SYRINGE IV PRN (11:45)
[2022-09-22] MEDS ORDERED: oxyCODONE 5MG TAB PO PRN (11:45)
[2022-09-22] MEDS ORDERED: ONDANSETRON 4MG 2ML VIAL IV PRN (11:45)
[2022-09-22 13:10] VITALS: BP 109/60; TEMP 98; O2SAT 98
== END 2022-09-22 14:00 | disposition home or self-care (01) ==
LOC: M SDC 08:37
PROVIDERS: ATTEND Orthopaedic Surgery Hand Surgery
DX: S52.501A Unspecified fracture of the lower end of right radius, initial encounter for closed fracture (principal); Y93.64 Activity, baseball; Y92.320 Baseball field as the place of occurrence of the external cause; E78.00 Pure hypercholesterolemia, unspecified; E29.1 Testicular hypofunction; Z87.891 Personal history of nicotine dependence; Z79.899 Other long term (current) drug therapy
CPT/HCPCS: 25607; 64418; 76000; C1713; J0690; J1100; J1885; J2250; J2405; J2795; J3010

== ENCOUNTER → 2022-09-30 | Outpatient (CLI) | payer BC, OTHER | LOC: M SOG 10:26 | PROVIDERS: ATTEND Physician Assistant | DX: S52.501A Unspecified fracture of the lower end of right radius, initial encounter for closed fracture (principal) ==

== ENCOUNTER → 2022-11-04 | Outpatient (CLI) | payer BC, OTHER | LOC: M SOG 13:22 | PROVIDERS: ATTEND Physician Assistant | DX: Z48.89 Encounter for other specified surgical aftercare (principal) ==

== ENCOUNTER → 2023-01-19 | Outpatient (CLI) | payer BC, OTHER ==
[2023-01-19 09:19] LABS: HEMATOCRIT 47.2 % (42.0-52.0); HEMOGLOBIN 15.9 g/dl (13.5-17.5); MEAN CORPUSCULAR HEMOGLOBIN 29.7 pg (27.0-33.0); MEAN CORPUSCULAR HGB CONC 33.7 g/dl (32.0-36.5); MEAN CORPUSCULAR VOLUME 88.1 fl (80.0-96.0); PLATELET COUNT, AUTOMATED 213 10^3/uL (150-450); RED BLOOD COUNT 5.36 10^6/uL (4.30-6.10); WHITE BLOOD COUNT 5.3 10^3/uL (4.0-10.0)
[2023-01-19 10:25] LABS: HEMOGLOBIN A1c 5.1 % (4.0-6.0)
[2023-01-19 10:32] LABS: ALBUMIN 3.9 G/DL (3.2-5.2); ALKALINE PHOSPHATASE 60 U/L (46-116); ALT/SGPT 19 U/L (7.0-40); AST/SGOT 16 U/L (<34); BILIRUBIN,TOTAL 0.6 MG/DL (0.3-1.2); BLOOD UREA NITROGEN 22 MG/DL (9-23); CALCIUM LEVEL 9.1 MG/DL (8.5-10.1); CARBON DIOXIDE LEVEL 29 MMOL/L (20-31); CHLORIDE LEVEL 103 MMOL/L (98-107); CHOLESTEROL LEVEL 201 MG/DL (<200); CHOLESTEROL RISK RATIO 3.53 (<5); CREATININE FOR GFR 1.06 MG/DL (0.70-1.30); GLOMERULAR FILTRATION RATE > 60.0 (>60); GLUCOSE, FASTING 95 MG/DL (60-100); HDL CHOLESTEROL 56.8 MG/DL (>40); LDL CHOLESTEROL 129.4 MG/DL (<100); NON-HDL-C 144.2 MG/DL; POTASSIUM SERUM 4.5 MMOL/L (3.5-5.1); SODIUM LEVEL 139 MMOL/L (136-145); TESTOSTERONE 266 NG/DL (241-827); THYROID STIMULATING HORMONE 1.206 uIU/ML (0.55-4.78); TOTAL 25(OH) VITAMIN D 37.6 NG/ML (20.0-100.0); TOTAL PROTEIN 6.8 G/DL (5.7-8.2); TRIGLYCERIDES LEVEL 74 MG/DL (<150)
== END ==
LOC: M LAB 08:50
PROVIDERS: ATTEND Family Medicine
DX: R53.83 Other fatigue (principal); D64.9 Anemia, unspecified; E03.9 Hypothyroidism, unspecified

== ENCOUNTER → 2024-11-27 | Outpatient (CLI) | payer BC, OTHER ==
[~2024-11-27] MED LIST changes: +ZOLP10TA11 PO; -ZOLP10TA2 PO
[2024-11-27 09:48] LABS: PLATELET COUNT, AUTOMATED 241 10^3/uL (150-450)
[2024-11-27 10:03] LABS: ESTIMATED AVERAGE GLUCOSE 111.0 MG/DL (60-110)
[2024-11-27 10:23] LABS: ALT/SGPT 24.0 U/L (7.0-40); AST/SGOT 29.0 U/L (<34); CALCIUM LEVEL 9.2 MG/DL (8.5-10.1); CARBON DIOXIDE LEVEL 29.0 MMOL/L (20-31); CHLORIDE LEVEL 105.0 MMOL/L (98-107); CHOLESTEROL LEVEL 199.0 MG/DL (<200); CHOLESTEROL RISK RATIO 3.99 (<5); CREATININE FOR GFR 1.2 MG/DL (0.70-1.30); GLOMERULAR FILTRATION RATE 76.5 (>60); LDL CHOLESTEROL 133.2 MG/DL (<100); NON-HDL-C 149.2 MG/DL; POTASSIUM SERUM 4.5 MMOL/L (3.5-5.1); SODIUM LEVEL 141.0 MMOL/L (136-145); TRIGLYCERIDES LEVEL 80.0 MG/DL (<150)
[2024-11-27 10:30] LABS: PROSTATIC SPECIFIC AG MONITOR 0.46 NG/ML (< 4.00)
[2024-11-27 10:33] LABS: TESTOSTERONE 507.0 NG/DL (241-827)
== END ==
LOC: M LAB 08:57
PROVIDERS: ATTEND Nurse Practitioner Family
DX: Z12.5 Encounter for screening for malignant neoplasm of prostate (principal); R53.83 Other fatigue; E03.9 Hypothyroidism, unspecified

== ENCOUNTER → 2024-11-27 | Outpatient (CLI) | payer BC, OTHER ==
[2024-11-27 10:34] LABS: LUTEINIZING HORMONE < 0.1 mIU/ML (1.5-9.3)
[2024-11-27 10:35] LABS: ESTRADIOL 35.7 PG/ML (<39.8)
[2024-11-27 10:36] LABS: PROGESTERONE < 0.21 NG/ML (0.28-1.22)
== END ==
LOC: M LAB 09:14
PROVIDERS: ATTEND Obstetrics & Gynecology
DX: E29.1 Testicular hypofunction (principal); R53.83 Other fatigue